=== PATIENT | female | born 1955 ===

== ENCOUNTER 2025-04-02 11:32 | Outpatient (REF) | payer SELFPAY ==
--- OUTSIDE RECORDS SUMMARY | 2025-04-02 12:30 | XMS_ITS | Encounter Summary ---
Author Organization [facility] Address [address] [place] [address] Care Team Providers Care Split Leather Mosser Name Role Phone Daniel Alba MD Primary Care Provider [phone] Encounter Details Date Type Department Care Team (Late st Contact Info) Description 11/28/2024 Lab Requisition [facility] - Main Lab [address] [facility] [employer] [address] Bernice Johnson MD [address] [place] [address] Urinary tract infection, site not specified Social History Tobacco Use Types Packs/Day Years Used Date Smoking Tobacco: Former Cigarettes 1 46 1 970 - 2015 Smokeless Tobacco: Never Alcohol Use Standard Drinks/Week Comments Not Currently 0 (1 standard drink = 0.6 oz pur e alcohol) Rarely Housing Instability Answer Date Recorde d Are you worried that in the next 2 months you may not have stable housing? No 11/30/2024 Food Access & Nutrition Answer Date Rec orded Do you have access to a vari ety of food including fruits and vegetables? Yes 11/30/2024 Access to Healthcare Answer Date Record ed Within the last 3 months, roseanna w many times did you visit the emergency department for your medical care? 2 11/30/2024 Health Literacy Answer Date Recorded How often do you need to hav e someone help you when you read instructions, pamphlets, or other written material from your doctor or pharmacy? Never 11/30/2024 Caregiver: How often do you need to have someone help you when you read instructions, pamphlets, or other written material from your doctor or pharmacy? Not on file 11/30/2024 Financial Risk Answer Date Recorded How hard is it for you to pa y for the very basics like food, housing, medical care, and air conditioning / heating? Not very hard 11/30/2024 Transportation Answer Date Recorded Has the lack of transportati on kept you from meetings, work, or from getting things needed for daily living? No Has the lack of transportati on kept you from medical appointments or from getting medications? No 11/30/2024 Social Isolation Answer Date Recorded How often do you feel lonely or isolated from th ose around you? Rarely 11/30/2024 Food Risk Answer Date Recorded Within the past 12 months we worried whether our food would run out before we got money to buy more. Never true 11/30/2024 Within the past 12 months th e food we bought just didn't last and we didn't have money to get more. Never true 11/30/2024 Dependent Care Answer Date Recorded Do you need help finding or paying for care for your loved ones. For example, childhood development teacher or elderly care for an older adult? No 11/30/2024 Education Answer Date Recorded Do you think completing more education or training, like finishing a GED, going to college, or learning a trade, would be helpful for you? No 11/30/2024 Employment and Income Answer Date Recor ded During the last four weeks, have you been actively looking for work? No 11/30/2024 Living Situation Answer Date Recorded What is your living situation? 0 11/30/2024 Interpersonal Safety Answer Date Record ed Physical Abuse 10/27/2024 Verbal Abuse 10/27/2024 Comments No Sex and Gender Information Value Date Recorded Sex Assigned at Female 11/24/2024 11:06 AM EST Legal Sex Female 7:01 AM EST Gender Identity Female 11/24/2024 11:06 AM EST Sexual Orientation Straight 09/23/2024 7: 46 AM EST documented as of this encounter Plan of Treatment Upcoming Encounters Date Type Department Care Team (Late st Contact Info) Description 04/28/2025 10:30 AM EDT Appointment [facility] CT Scan [address] [place] [address] documented as of this encounter Procedures Procedure Name Priority Date/Time Associated Diagnosis Comments URINALYSIS WITH REFLEX MICROSCOPIC Routine 11/27/2024 8:30 PM EST Urinary tract infection, site not specified URINALYSIS WITH REFLEX MICROSCOPIC Routine 11/27/2024 8:30 PM EST Urinary tract infection, site not specified CULTURE URINE Routine 11/27/2024 8:30 PM EST Urinary tract infection, site not specified documented in this encounter Results * (ABNORMAL) Urinalysis with reflex microscopic (11/27/2024 8:30 PM EST) Specific [place] Urine 1.037(H) 1.003 - 1.030 LAB URINALYSIS - AUTOMATED METHOD 11/28/2024 11:11 AM [facility] pH, Urine 5.5 5.0 - 8.0 pH LAB URINALYSIS - AUTOMATED METHOD 11/28/2024 11:11 AM [facility] Leukocytes, Urine Small(A) Negative LAB URINALYSIS - AUTOMATED METHOD 11/28/2024 11:11 AM [facility] Nitrite, Urine Negative Negative LAB URINALYSIS - AUTOMATED METHOD 11/28/2024 11:11 AM [facility] Protein, Urine 30(A) <=Trace mg/dL LAB URINALYSIS - AUTOMATED METHOD 11/28/2024 11:11 AM [facility] Glucose, Urine 500(A) Negative mg/dL LAB URINALYSIS - AUTOMATED METHOD 11/28/2024 11:11 AM [facility] Ketones, Urine Trace(A) Negative mg/dL LAB URINALYSIS - AUTOMATED METHOD 11/28/2024 11:11 AM [facility] Urobilinogen , Urine 1.0 0.2 - 1.0 mg/dL LAB URINALYSIS - AUTOMATED METHOD 11/28/2024 11:11 AM [facility] Bilirubin, Urine Negative Negative LAB URINALYSIS - AUTOMATED METHOD 11/28/2024 11:11 AM [facility] Blood, Urine Negative Negative LAB URINALYSIS - AUTOMATED METHOD 11/28/2024 11:11 AM [facility] RBC, Urine 0.0 0 - 4 /HPF LAB URINALYSIS - AUTOMATED METHOD 11/28/2024 11:11 AM [facility] WBC, Urine 10.0(H) 0 - 4 /HPF LAB URINALYSIS - AUTOMATED METHOD 11/28/2024 11:11 AM [facility] Squamous Epithelial, Urine 9 0 - 60 /LPF LAB URINALYSIS - AUTOMATED METHOD 11/28/2024 11:11 AM [facility] Non-Squamous Epithelial, Urine Rare Transitional Epithelial Cells /LPF 11/28/2024 11:11 AM [facility] Crystals, Urine Heavy Calcium Oxalate /LPF 11/28/2024 11:11 AM [facility] Bacteria, Urine Many(A) Negative /HPF LAB URINALYSIS - AUTOMATED METHOD 11/28/2024 11:11 AM [facility] Hyaline Casts, Urine 0.0 0 - 3 /LPF LAB URINALYSIS - AUTOMATED METHOD 11/28/2024 11:11 AM [facility] Yeast, Urine Present(A) None /HPF 11/28/2024 11:11 AM [facility] Urine Urine specimen from urethra / Unknown Non-blood Collection / Unknown 11/27/2024 8:30 PM EST 11/28/2024 10:30 AM EST us Bernice Johnson MD LAB URINE ORDERABLES Final Resul t [facility] [address] [place] [address], * Culture urine (11/27/2024 8:30 PM EST) Culture, Urine <10,000 cfu/ml, insignificant count, no further workup. 11/29/2024 11:16 AM EST [facility] Urine Urine specimen from urethra / Unknown Non-blood Collection / Unknown 11/27/2024 8:30 PM EST 11/28/2024 10:30 AM EST us Bernice Johnson MD LAB MICROBIOLOGY - GENERAL ORDER CUATE Final Result [facility] [address] [place] [address], documented in this encounter Visit Diagnoses Diagnosis Urinary tract infection, site not specified documented in this encounter Additional Health Concerns Infection Onset Date Last Indicated Resolved Time Respiratory Rule-Out 12/23/2024 12/23/2024 025 7:22 AM EST COVID-19 Rule-Out 12/23/2024 12/23/2024 12/24/2024 7:22 AM EST Respiratory Rule-Out 12/25/2024 12/25/2024 025 1:04 PM EST COVID-19 Rule-Out 12/25/2024 12/25/2024 12/25/2024 1:04 PM EST Varicella Zoster Rule-Out 12/28/2024 12/28/2024 11:09 AM EDT Respiratory Rule-Out 01/11/2025 01/11/2025 025 6:45 AM EDT COVID-19 Rule-Out 01/11/2025 01/11/2025 01/12/2025 6:45 AM EDT VRE 02/08/2025 02/08/2025 02/12/2025 9:42 AM EDT VRE 02/08/2025 02/08/2025 02/15/2025 7:51 AM EDT Respiratory Rule-Out 02/11/2025 02/11/2025 025 10:22 PM EDT COVID-19 Rule-Out 02/11/2025 02/11/2025 02/11/2025 10:22 PM EDT Assessment Noted Time PHQ-9 Depression Total Score: 0 11/16/19 4:00 PM EST documented as of this encounter Care Teams Split Leather Mosser Relationship Specialty Start Date End Date Daniel Alba MD [address] [place], [place] PCP - General Internal Medicine 12/09/20 documented as of this encounter
== END 2025-04-02 11:33 | disposition home or self-care (01) ==
LOC: HO.WMHL 11:32
PROVIDERS: Visit Provider Nurse Practitioner Acute Care
DX: Z13.89 Encounter for screening for other disorder (principal)

== ENCOUNTER 2025-05-26 16:19 | Outpatient (REF) | payer SELFPAY ==
--- OUTSIDE RECORDS SUMMARY | 2025-05-26 16:33 | XMS_ITS | Encounter Summary ---
Author Organization [facility] Address [address] [place] [address] Care Team Providers Care Electrical Linesworker Name Role Phone Daniel Alba MD Primary Care Provider [phone] Encounter Details Date Type Department Care Team (Late st Contact Info) Description 11/28/2024 Lab Requisition [facility] - Main Lab [address] [place] [address] Bernice Johnson MD [address] [place] [address] Urinary tract infection, site not specified Social History Tobacco Use Types Packs/Day Years Used Date Smoking Tobacco: Former Cigarettes 1 46 1 970 - 2016 Smokeless Tobacco: Never Alcohol Use Standard Drinks/Week [...] ed Within the last 3 months, roseanna benites many times did you visit the emergency [...] care for your loved ones. For example, child welfare assistant or elderly care for an older adult? [...] as of this encounter Plan of Treatment Not on file documented as of this encounter Procedures Procedure [...] with reflex microscopic (11/27/2024 8:30 PM EST) Pathologist [facility] Specific [place] Urine 1.037(H) 1.003 - 1.030 LAB URINALYSIS - AUTOMATED METHOD 11/28/2024 11:11 AM [facility] pH, Urine 5.5 5.0 - 8.0 pH LAB URINALYSIS - AUTOMATED METHOD 11/28/2024 11:11 AM [facility] Leukocytes, Urine Small(A) Negative LAB URINALYSIS - AUTOMATED METHOD 11/28/2024 11:11 AM [facility] Nitrite, Urine Negative Negative LAB URINALYSIS - AUTOMATED METHOD 11/28/2024 11:11 AM [facility] Protein, Urine 30(A) <=Trace mg/dL LAB URINALYSIS - AUTOMATED METHOD 11/28/2024 11:11 AM [facility] Glucose, Urine 500(A) Negative mg/dL LAB URINALYSIS - AUTOMATED METHOD 11/28/2024 11:11 AM [facility] Ketones, Urine Trace(A) Negative mg/dL LAB URINALYSIS - AUTOMATED METHOD 11/28/2024 11:11 AM [facility] Urobilinogen , Urine 1.0 0.2 - 1.0 mg/dL LAB URINALYSIS - AUTOMATED METHOD 11/28/2024 11:11 AM [facility] Bilirubin, Urine Negative Negative LAB URINALYSIS - AUTOMATED METHOD 11/28/2024 11:11 AM [facility] Blood, Urine Negative Negative LAB URINALYSIS - AUTOMATED METHOD 11/28/2024 11:11 AM [facility] RBC, Urine 0.0 0 - 4 /HPF LAB URINALYSIS - AUTOMATED METHOD 11/28/2024 11:11 AM [facility] WBC, Urine 10.0(H) 0 - 4 /HPF LAB URINALYSIS - AUTOMATED METHOD 11/28/2024 11:11 AM [facility] Squamous Epithelial, Urine 9 0 - 60 /LPF LAB URINALYSIS - AUTOMATED METHOD 11/28/2024 11:11 AM [facility] Non-Squamous Epithelial, Urine Rare Transitional Epithelial Cells /LPF 11/28/2024 11:11 AM [facility] Crystals, Urine Heavy Calcium Oxalate /LPF 11/28/2024 11:11 AM [facility] Bacteria, Urine Many(A) Negative /HPF LAB URINALYSIS - AUTOMATED METHOD 11/28/2024 11:11 AM [facility] Hyaline Casts, Urine 0.0 0 - 3 /LPF LAB URINALYSIS - AUTOMATED METHOD 11/28/2024 11:11 AM [facility] Yeast, Urine Present(A) None /HPF 11/28/2024 11:11 AM [facility] Urine Urine specimen from urethra / Unknown Non-blood Collection / Unknown 11/27/2024 8:30 PM EST 11/28/2024 10:30 AM EST us Bernice Johnson MD LAB URINE ORDERABLES Final Resul t [facility] [address] [place] [address], * Culture urine (11/27/2024 8:30 PM EST) Culture, Urine <10,000 cfu/ml, insignificant count, no further workup. 11/29/2024 11:16 AM EST [facility] Urine Urine specimen from urethra / Unknown Non-blood Collection / Unknown 11/27/2024 8:30 PM EST 11/28/2024 10:30 AM EST us Bernice Johnson MD LAB MICROBIOLOGY - GENERAL ORDER CUATE Final Result [facility] [address] [place] [address], documented in this encounter Visit Diagnoses Diagnosis [...] documented as of this encounter Care Teams Electrical Linesworker Relationship Specialty Start Date End Date Daniel Alba MD [address] [place], [place] PCP - General Internal Medicine 12/09/20 documented as of this encounter
== END 2025-05-26 16:20 | disposition home or self-care (01) ==
LOC: HO.WMHL 16:19
PROVIDERS: Visit Provider Nurse Practitioner Family
DX: Z13.89 Encounter for screening for other disorder (principal)
CPT/HCPCS: 36415; 85025

== ENCOUNTER 2025-09-28 12:44 | Outpatient (RCR) | payer MEDICARE, MEDICAID, SELFPAY | END 2025-09-28 16:31 | disposition home or self-care (01) | LOC: HO.WCC 12:44 | PROVIDERS: Visit Provider Surgery Surgical Oncology | DX: L89.154 Pressure ulcer of sacral region, stage 4 (principal); G83.81 Brown-Sequard syndrome; Z79.899 Other long term (current) drug therapy; Z87.891 Personal history of nicotine dependence | CPT/HCPCS: 99203 ==